=== PATIENT | female | born 1980 | race Caucasian/White ===

== ENCOUNTER 2019-02-09 06:25 | Emergency (ER) | payer BC, OTHER ==
[~2019-02-09] VITALS: Ht 157.5 cm; Wt 54.4 kg
[~2019-02-09 06:25] MED LIST: APAP500; CLARITIN10 MG PO; DERMOPLAST SPRA56 ML; FLONASE 0.05%50 MCG NASAL; HYDROCORTISONE30 G9; IBUPROFEN 800800 M1; LANOLIN56 GM; NAPROSYN500 MG PO; NOHOMEMEDICATIONS; NORCO 5-325 TA1 EACH PO; PRENATAL PO; TUCKS MEDICATE1 EAC1
[2019-02-09 06:54] LABS: URINE BILIRUBIN NEGATIVE (Negative); URINE BLOOD NEGATIVE (Negative); URINE CLARITY CLEAR; URINE COLOR YELLOW; URINE GLUCOSE-RANDOM* NEGATIVE (Negative); URINE KETONES NEGATIVE (Negative); URINE LEUKOCYTES-REFLEX NEGATIVE (Negative); URINE NITRITE-REFLEX NEGATIVE (Negative); URINE PROTEIN (DIPSTICK) NEGATIVE (Negative); URINE SPECIFIC GRAVITY <= 1.005 (1.005-1.035); URINE UROBILINOGEN 0.2 E.U./dl (0.2-1.0)
[2019-02-09 06:57] LABS: HEMATOCRIT 42.7 % (37.0-47.0); HEMOGLOBIN 14.1 gm/dL (12.0-15.0); MCH 30.9 pg (26.0-34.0); MCHC 33.1 g/dL (28.0-37.0); MCV 93.4 fL (80.0-100.0); PLATELET COUNT 256 thou/uL (150-400); RBC 4.57 mil/uL (4.20-5.00); RDW 13.8 % (10.5-14.5); WBC 20.8 thou/uL (4.0-11.0)
[2019-02-09 07:03] LABS: CALCIUM 8.7 mg/dL (8.5-10.1); CREATININE 0.5 mg/dL (0.6-1.0); POTASSIUM 3.6 mmol/L (3.5-5.1)
[2019-02-09 07:09] LABS: TOTAL BILIRUBIN 0.3 mg/dL (<0.1-1.0); TOTAL PROTEIN 7.8 g/dL (6.4-8.2)
[2019-02-09 08:13] LABS: ABSOLUTE NEUTROPHILS 17.1 thou/uL (1.4-8.2)
[2019-02-09 09:25] VITALS: BP 105/65
[2019-02-09] MEDS ORDERED: ZOFRAN ODT4 MG PO (09:37)
== END 2019-02-09 09:41 | disposition home or self-care (01) ==
LOC: ER 06:25
PROVIDERS: Emergency Medicine
DX: K52.9 Noninfective gastroenteritis and colitis, unspecified (principal); F17.210 Nicotine dependence, cigarettes, uncomplicated; Z90.49 Acquired absence of other specified parts of digestive tract; Z88.0 Allergy status to penicillin